=== PATIENT | female | born 1990 | race Caucasian/White ===

== ENCOUNTER 2023-01-08 16:01 | Emergency (ER) | payer MEDICARE, MEDICAID ==
[2023-01-08 16:50] VITALS: BP 127/82; PULSE 94
[2023-01-08] MEDS: Ketorolac 60 MG/2 ML SDV IM ONE (17:32)
[2023-01-08] MEDS ORDERED: Bacitracin Oint 1 GM U/D Packet TOP ONE (17:32)
[2023-01-08] MEDS: Ketorolac 60 MG/2 ML SDV ONE (17:36)
[2023-01-08] MEDS: Diphtheria,Pertussis(Acell),Tetanus Vaccine 0.5 ML Syringe IM ONE (17:41)
[2023-01-08] MEDS ORDERED: Amoxicillin 500 MG Cap ONE (18:00)
== END 2023-01-08 18:10 | disposition home or self-care (01) ==
LOC: LB.ED 16:01
DX: S81.011A Laceration without foreign body, right knee, initial encounter (principal); J45.909 Unspecified asthma, uncomplicated; E66.9 Obesity, unspecified; F17.210 Nicotine dependence, cigarettes, uncomplicated; Z68.37 Body mass index [BMI] 37.0-37.9, adult; Z23 Encounter for immunization; Z88.5 Allergy status to narcotic agent; W19.XXXA Unspecified fall, initial encounter
CPT/HCPCS: 12001; 73562; 90471; 90715; 96372; 99283; A9270; J1885

== ENCOUNTER 2023-07-29 17:58 | Emergency (ER) | payer MEDICARE, MEDICAID ==
[2023-07-29] MEDS ORDERED: Lidocaine 1% with EPINEPHrine 1:100,000 20 ML MDV INJECT ONE (18:15)
[2023-07-29] MEDS ORDERED: Bacitracin Oint 1 GM U/D Packet TOP ONE (18:35)
[2023-07-29] MEDS ORDERED: Lidocaine 1% with EPINEPHrine 1:100,000 50 ML MDV INFILT ONE (18:51)
== END 2023-07-29 18:40 | disposition home or self-care (01) ==
LOC: LB.ED 17:58
DX: S61.412A Laceration without foreign body of left hand, initial encounter (principal); Z88.5 Allergy status to narcotic agent; W26.0XXA Contact with knife, initial encounter
CPT/HCPCS: 12001; 99282

== ENCOUNTER 2023-08-16 00:10 | Emergency (ER) | payer MEDICARE, MEDICAID ==
[2023-08-16] MEDS: Sodium Chloride 0.9% 1,000 ML IV ONE (00:40)
[2023-08-16] MEDS: Ondansetron 4 MG Tab.DIS PO ONE (00:43)
[2023-08-16] MEDS: Pantoprazole 40 MG Vial IVPUSH ONE (00:43)
[2023-08-16 01:00] LABS: BASOPHILS ABSOLUTE AUTO 0.02 K/uL (0.02-0.10); BASOPHILS PERCENT AUTO 0.3 % (0.0-0.5); EOSINOPHILS ABSOLUTE AUTO 0.35 K/uL (0.04-0.40); EOSINOPHILS PERCENT AUTO 4.7 % (1.0-5.0); HEMATOCRIT 38.4 % (37.0-47.0); HEMOGLOBIN 12.2 g/dL (11.5-16.5); LYMPHOCYTES ABSOLUTE AUTO 1.06 K/uL (1.50-4.00); LYMPHOCYTES PERCENT AUTO 14.2 % (20.0-40.0); MEAN CORPUSCULAR HEMOGLOBIN 25.8 pg (27.0-32.0); MEAN CORPUSCULAR HGB CONC 31.8 g/dL (31.0-35.0); MEAN CORPUSCULAR VOLUME 81 fL (76-96); MEAN PLATELET VOLUME 9.6 fL (6.0-10.0); MONOCYTES ABSOLUTE AUTO 0.72 K/uL (0.20-0.80); MONOCYTES PERCENT AUTO 9.7 % (3.0-10.0); NEUTROPHILS PERCENT AUTO 71.1 % (45.0-70.0); PLATELET COUNT,PLT 160 K/uL (150-500); RED BLOOD CELL COUNT 4.72 M/uL (3.80-5.80); RED CELL DISTRIBUTION WIDTH 17.5 % (11.0-16.0); WHITE BLOOD CELL COUNT,WBC 7.5 K/uL (4.0-11.0)
[2023-08-16 01:08] LABS: ALBUMIN 3.2 g/dL (3.4-5.0); ANION GAP 13.9 mmol/L (5.0-15.0); BUN/CREATININE RATIO 14.1 (6-25); CALCIUM 8.2 mg/dL (8.5-10.1); CARBON DIOXIDE,CO2 27.3 mmol/L (21.0-32.0); CREATININE 0.78 mg/dL (0.55-1.02); EST CRCL DRUG DOSING (CG) 94.04 mL/min; POTASSIUM,K 3.2 mmol/L (3.5-5.1); PROTEIN TOTAL,TP 6.5 g/dL (6.4-8.2)
[2023-08-16] MEDS: Pantoprazole 40 MG Vial ONE (01:10)
[2023-08-16] MEDS: Ondansetron 4 MG Tab.DIS ONE (01:10)
[2023-08-16 01:13] LABS: APPEARANCE,URINE CLEAR (CLEAR); BILIRUBIN,URINE SMALL (NEGATIVE); COLOR,URINE YELLOW; GLUCOSE,URINE 100 mg/dL (NEGATIVE); KETONES,URINE NEGATIVE (NEGATIVE); LEUKOCYTE ESTERASE,URINE NEGATIVE (NEGATIVE); NITRITE,URINE NEGATIVE (NEGATIVE); OCCULT BLOOD,URINE TRACE-INTACT (NEGATIVE); PH,URINE 6.5 (5.0-8.0); PROTEIN,URINE 30 mg/dL (NEGATIVE)
[2023-08-16 01:15] LABS: EPITHELIAL CELLS,URINE MODERATE /HPF; RBC,URINE 0-5 /HPF; WBC,URINE NOT SEEN /HPF
[2023-08-16] MEDS ORDERED: Ondansetron 4 MG Tab.DIS ONE (01:30)
== END 2023-08-16 01:35 | disposition home or self-care (01) ==
LOC: LB.ED 00:10
DX: K29.00 Acute gastritis without bleeding (principal); E66.9 Obesity, unspecified; F17.210 Nicotine dependence, cigarettes, uncomplicated; Z88.8 Allergy status to other drugs, medicaments and biological substances; Z79.899 Other long term (current) drug therapy; Z86.16 Personal history of COVID-19; Z68.32 Body mass index [BMI] 32.0-32.9, adult
CPT/HCPCS: 36415; 80053; 81001; 83690; 85025; 96361; 96374; 99284; C9113; J7030; Q0162